=== PATIENT | male | born 1970 | race Caucasian/White ===

== ENCOUNTER 2019-08-28 15:57 | Emergency (ER) | payer MEDICAID, SELFPAY ==
[2019-08-28 15:59] VITALS: BP 146/99; PULSE 84; RESP 18; TEMP 36.6; O2SAT 99; BMI 30.1
--- NOTE | 2019-08-28 16:31 | ED.DCSUM_ITS ---
- ER Visit Summary Date of Service: 08/28/19 Chief Complaint: Suicidal ideation History of Present Illness: The patient is a 49 M presenting with suicidal ideation. Patient was sent in by his primary care physician. He states he told his primary care physician today that he has been having suicidal thoughts. He asked his doctor for medication to end it all. He states in the past he has held a gun in his hand and considered suicide. He denies past suicide attempts. He states he has been under increased stress. He is not eating or sleeping well. He just recently stopped Prozac which he was taking for PTSD. He drinks 5-6 beers every other night and uses medical marijuana. He denies other drug use. Physical Examination: Vitals are stable. Patient is afebrile. Alert no acute distress. HEENT exam is unremarkable. Neck is supple. Lungs are clear and equal bilaterally. Heart is regular rate and rhythm. Abdomen is soft nontender nondistended. Extremities are unremarkable. Skin is warm and dry. No focal neurologic deficit. Depressed, tearful affect Remainder of exam is unremarkable. Emergency Department Course and Treatment: CBC, chemistries unremarkable. Tox positive for benzo and THC. Alcohol negative. Patient was evaluated by social work in the ED. Disposition: Per social work Impression: Depression, suicidal ideation This note was generated with [employer] dictation software. It may contain incorrect words, spelling, and punctuation that were not noted in review of the chart prior to signing ED Disposition - Plan for ED Patient: Referrals: Milton Warren MD [Primary Care Provider] -
[2019-08-28 16:54] LABS: Amphetamine Urine VISTA NEGATIVE (<1000 ng/mL); Barbiturate Urine VISTA NEGATIVE (< 200 ng/mL); Benzodiazepine Urine VISTA POSITIVE (< 200 ng/mL); Cocaine Urine VISTA NEGATIVE (< 300 ng/mL); Ecstacy Urine VISTA NEGATIVE (< 500 ng/mL); Methadone Urine VISTA NEGATIVE (< 300 ng/mL); PCP Urine VISTA NEGATIVE (< 25 ng/mL); THC Urine VISTA POSITIVE (< 50 ng/mL); Vista UDS pH Range 6
[2019-08-28 17:28] LABS: Anion Gap 4 (5-15); BUN 13 mg/dL (7-18); BUN/Creat Ratio 10.6 RATIO (10-20); Calcium,Total 9.5 mg/dL (8.5-10.1); Chloride 107 mmol/L (98-107); Creatinine, Serum 1.23 mg/dL (0.70-1.30); EST Glomerular Filtration Rate 66 mL/min (>60); Est Glom Filt Rate - Afr Amer 80 mL/min (>60); Estimated Creatinine Clearance 73.36 ml/min; Glucose 99 mg/dL (74-106); Potassium 4.4 mmol/L (3.5-5.1); Sodium Level 138 mmol/L (136-145)
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
[2019-08-28 17:32] LABS: Absolute Lymphocyte Count 2.76 X10^3/uL (0.83-4.51); Absolute Neutrophil Count 7.7 X10^3/uL (2.0-7.7); Basophil# 0.03 X10^3/uL; Basophil% 0.3 % (0-1); Eosinophil# 0.16 X10^3/uL; Eosinophils% 1.4 % (0-5); Hematocrit 50.2 % (40-54); Hemoglobin 16.9 g/dL (13.0-16.5); Lymphocyte # 2.76 X10^3/ul (4.0); Lymphocyte % 23.9 % (19-41); Mean Corp Hgb Conc 33.7 g/dL (32-36); Mean Corpuscular Hgb 32.6 pg (27.0-32.0); Mean Corpuscular Volume 96.9 fL (80-94); Mean Platelet Vol. 9.2 fl (6.2-12.0); Monocyte# 0.83 X10^3/uL; Monocyte% 7.2 % (0-10); NRBC Flagged by Analyzer 0 % (0-5); Neutrophil # 7.72 X10^3/uL (2.7-7.7); Neutrophil % 66.9 % (47-70); Platelet Count 210 K/mm3 (150-450); RBC Distribution Width CV 11.8 % (11.6-14.6); RBC Distribution Width SD 42.5 fl (35.1-43.9); Red Blood Count 5.18 M/mm3 (4.6-6.2); White Blood Count 11.5 K/mm3 (4.4-11.0)
[2019-08-28 17:49] LABS: Alcohol, Blood (Medical)-Serum < 3.0 mg/dL
--- NOTE | 2019-08-28 17:51 | EKG12_ITS ---
Test Reason : [facility] [place] Blood Pressure : / mmHG Vent. Rate : 072 BPM Atrial Rate : 072 BPM P-R Int : 158 ms QRS Dur : 096 ms QT Int : 410 ms P-R-T Axes : 058 011 024 degrees QTc Int : 448 ms Normal sinus rhythm Normal ECG Confirmed by ZAYRA MAS, CARLITO ([id number]), movie editor JERAMIE PATTERSON ([id number]) on 08/31/2019 12:53:51 PM Referred By: Confirmed By:CARLITO IVERSON MD
[2019-08-28 17:56] VITALS: RESP 16
--- NOTE | 2019-08-28 18:03 | CM.ED ---
SOCIAL WORK REFERRAL CALLED TO [facility]. CLINICAL INFORMATION TO BE FAXED. Edil ARGUELLO MSW, STEEL MELTER.
[2019-08-28 18:50] VITALS: RESP 16
[2019-08-28 19:38] VITALS: BP 135/90; PULSE 82; RESP 16; TEMP 37.1; O2SAT 98
--- NOTE | 2019-08-28 20:20 | CM.ED ---
SOCIAL WORK CALL TO [facility] TO CHECK ON STATUS OF REFERRAL. WORKER REPORTS REFERRAL IS UNDER REVIEW. AWAITING ACCEPTANCE. Edil ARGUELLO, MUSHROOM SORTER GRADER, PLUMBING MECHANIC
[2019-08-28 20:21] VITALS: RESP 16
--- NOTE | 2019-08-28 20:53 | CM.ED ---
SOCIAL WORK RECEIVED CALL FROM [facility] LAGUNA[facility]. PATIENT ACCEPTED BY DR. DUBOSE, PATIENT TO GO TO [address], NURSE TO CALL REPORT TO . Edil ARGUELLO MSW, BUSINESS OPERATIONS DIRECTOR.
[2019-08-28 21:32] VITALS: BP 134/89; PULSE 79; RESP 16; O2SAT 98
== END 2019-08-28 22:06 ==
LOC: ED 17:22
PROVIDERS: Emergency Provider Emergency Medicine; Family Provider Family Medicine; PCP Family Medicine
DX: F32.9 Major depressive disorder, single episode, unspecified (principal); R45.851 Suicidal ideations; F43.10 Post-traumatic stress disorder, unspecified; I25.10 Atherosclerotic heart disease of native coronary artery without angina pectoris; I25.2 Old myocardial infarction; I10 Essential (primary) hypertension; Z79.82 Long term (current) use of aspirin; Z79.02 Long term (current) use of antithrombotics/antiplatelets; Z79.899 Other long term (current) drug therapy; F10.99 Alcohol use, unspecified with unspecified alcohol-induced disorder; F12.90 Cannabis use, unspecified, uncomplicated; Z72.0 Tobacco use
CPT/HCPCS: 80048; 80307; 80320; 85025; 93005; 99284; G0480